=== PATIENT | male | born 2000 | race Two or more races ===

== ENCOUNTER 2022-03-28 17:30 | Emergency (ER) | payer SELFPAY ==
[2022-03-28] MEDS ORDERED: PROPOFOL 100 ML IV SCH (18:00)
[2022-03-28] MEDS ORDERED: SUCCINYLCHOLINE CHLORIDE 20 MG/ML 10ML VIAL IV ONE (18:15)
[2022-03-28] MEDS ORDERED: ETOMIDATE (2MG/ML) 20ML VIAL IV ONE (18:15)
[2022-03-28 18:30] VITALS: BP 131/64
== END 2022-03-28 19:14 | disposition short-term general hospital (02) ==
LOC: ER 17:30
DX: S06.899A Other specified intracranial injury with loss of consciousness of unspecified duration, initial encounter (principal); R40.20 Unspecified coma; W34.00XA Accidental discharge from unspecified firearms or gun, initial encounter; Y93.89 Activity, other specified; Y92.89 Other specified places as the place of occurrence of the external cause; Y99.8 Other external cause status
CPT/HCPCS: 31500; 36600; 70450; 71045; 72125; 82805; 87070; 87077; 87186; 87205; 94002; 99291